=== PATIENT | male | born 1960 ===

== ENCOUNTER 2017-08-10 09:54 | Day surgery (SDC) | payer OTHER ==
[~2017-08-10 09:54] MED LIST: Acetaminophen TAB* 325 MG PO PRN; Buffered Lidocaine 0.9% SYRIN* 5 ML/SYR SYRINGE INTRADERM ONE
[2017-08-10] MEDS ORDERED: Midazolam* 1 MG/ML 2 ML VIAL (2 MG) ONE ×2 (11:28→12:03)
[2017-08-10 12:34] VITALS: BP 130/83
[2017-08-10] MEDS ORDERED: Lidocaine 1% MPF* 2 ML VIAL ONE (15:38)
[2017-08-10] MEDS ORDERED: Povidone Iodine 5% OPTH* 30 ML BTL ONE (15:38)
[2017-08-10] MEDS ORDERED: Tetracaine 0.5% OPTH.SOL 4 ML* 1 DROP BTL ONE (15:38)
[2017-08-10] MEDS ORDERED: Phenylephrine 2.5% OPTH.SOL* 2 ML BTL ONE (15:38)
[2017-08-10] MEDS ORDERED: Neomycin/Polymy/Dex OPHTH.OIN* 3.5 GM ONE (15:38)
[2017-08-10] MEDS ORDERED: Cyclopentolate 1% OPTH.SOL* 2 ML BTL ONE (15:38)
[2017-08-10] MEDS ORDERED: Ketorolac 0.5% OPHTH (NF) 0.5 % 5 ML BTL ONE (15:38)
[2017-08-10] MEDS ORDERED: Tropicamide 1% OPTH.SOL* BTL ONE (15:38)
[2017-08-10] MEDS ORDERED: acetaZOLAMIDE TAB* 250 MG ONE (15:38)
--- NOTE | 2017-08-11 02:06 | OP ---
DATE OF OPERATION: 08/10/17 - [facility] DATE OF : 64 SURGEON: Jese Waller MD PRE-OP DIAGNOSIS: Cataract, right eye. POST-OP DIAGNOSIS: Cataract, right eye. ANESTHESIA: Monitored anesthesia care. OPERATIVE PROCEDURE: Extracapsular cataract extraction of the right eye with intraocular lens implant. IMPLANTS: SN60WF 23.0 diopter lens to the right eye. COMPLICATIONS: None. DESCRIPTION OF PROCEDURE: The patient was given phenylephrine 2.5% and cyclopentolate 1% eyedrops to the operative eye in the preoperative area. The patient was brought to the operating room where a time-out was taken to identify the correct patient, site and side of surgery. The patient's right eye was prepped and draped in usual sterile fashion with 5% Betadine. A second timeout was taken to verify the correct patient, site and side of surgery, and correct lens selection. A lid speculum was placed to the right eye. A 1-mm paracentesis blade was used to make a clear corneal incision in the superotemporal position. Preservative-free 1% lidocaine was injected into the anterior chamber. DisCoVisc was then injected into the anterior chamber. A 2.75 -mm keratome blade was used to make a triplanar incision at the inferotemporal position. A cystotome initiated a capsulorrhexis, which was completed with Utrata forceps in a continuous and curvilinear manner. Hydrodissection of the lens was performed with BSS on a cannula. The lens could be spun in the capsular bag. The phacoemulsification handpiece was used with divide-and- conquer technique to remove the nucleus in its entirety with 7.86 CDE. The I/A handpiece then removed the residual cortical lens material. DisCoVisc was injected to inflate the capsular bag. The planned SN60WF 23.0 diopter lens was injected in the capsular bag. The residual DisCoVisc was removed from the eye with the I/A handpiece. The corneal incisions were hydrated and no leaks occurred at physiologic pressure around 20 mmHg per palpation. The lid speculum was removed and drapes removed. Maxitrol ointment was placed to the surface of the operative eye. An adhesive patch and shield was placed on the operative eye. The patient was taken to the postoperative area in stable condition. [id number] #: [id number] MTDD
== END 2017-08-10 12:37 | disposition home or self-care (01) ==
LOC: OREAST 09:54
PROVIDERS: ATTEND Student in an Organized Health Care Education/Training Program
DX: H25.11 Age-related nuclear cataract, right eye (principal); H35.032 Hypertensive retinopathy, left eye; I10 Essential (primary) hypertension; M10.9 Gout, unspecified; Z87.891 Personal history of nicotine dependence; Z68.42 Body mass index [BMI] 45.0-49.9, adult
CPT/HCPCS: A9270-GY; J2250; V2632